=== PATIENT | female | born 1970 | race Caucasian/White ===

== ENCOUNTER 2025-02-07 16:55 | Emergency (ER) | payer OTHER ==
[2025-02-07 17:09] VITALS: TEMP 99.5; BMI 46.5
[2025-02-07 18:26] LABS: ABSOLUTE IMMATURE GRANULOCYTES 0.03 x10^3/uL (0.0-0.031); BASOPHILS # 0.02 x10^3/uL (0.01-0.08); EOSINOPHIL % 0.5 % (0.7-5.8); EOSINOPHILS # 0.05 x10^3/uL (0.04-0.36); HEMATOCRIT 42.2 % (34.1-44.9); HEMOGLOBIN 13.4 g/dL (11.2-15.7); MCHC 31.8 g/dl (32.2-35.5); MEAN CELL VOLUME 89.8 fl (79.4-94.8); MEAN PLT VOLUME 11.5 fl (9.4-12.3); MONOCYTE # 0.46 x10^3/uL (0.24-0.86); PLATELET COUNT 221 x10^3/uL (182-369); RDW 14.8 % (12.3-16.6)
[2025-02-07 18:34] LABS: INR 1.07 (0.83-1.09); PROTHROMBIN TIME (PATIENT) 11.8 SEC (9.7-13.0)
[2025-02-07 18:36] LABS: ACTIVATED PTT 30.7 SECONDS (25.2-36.5)
[2025-02-07 18:55] LABS: POTASSIUM 4.4 mmol/L (3.5-5.1)
[2025-02-07 18:58] LABS: ALBUMIN 3.2 g/dl (3.4-5.0); BLOOD UREA NITROGEN 13.9 mg/dL (7-18); CALCIUM 9.4 mg/dL (8.5-10.1)
[2025-02-07 19:01] LABS: CREATININE 0.6 mg/dL (0.55-1.3)
[2025-02-07 19:03] LABS: BILIRUBIN,TOTAL 0.6 mg/dL (0.2-1); TOT PROT 7.1 g/dl (6.4-8.2)
[2025-02-07 22:43] VITALS: BP 160/85; PULSE 77; RESP 18
== END 2025-02-07 22:43 | disposition home or self-care (01) ==
LOC: JER 16:55
DX: K62.5 Hemorrhage of anus and rectum (principal); R10.32 Left lower quadrant pain; K64.4 Residual hemorrhoidal skin tags
CPT/HCPCS: 36415; 74177-TC; 80053; 85025; 85610; 85730; 86850; 86900; 86901; 93005; 93010; 99285-25

== ENCOUNTER 2025-03-05 06:56 | Day surgery (SDC) | payer OTHER ==
[2025-03-04 10:16] VITALS: BMI 56.6
[2025-03-05 09:33] VITALS: TEMP 97.9
[2025-03-05 10:04] VITALS: RESP 14
[2025-03-05 10:06] VITALS: BP 160/74; PULSE 60
[2025-03-05 11:16] LABS: POTASSIUM 4.3 mmol/L (3.5-5.1)
[2025-03-05 11:18] LABS: ALBUMIN 3.3 g/dl (3.4-5.0); BLOOD UREA NITROGEN 17.1 mg/dL (7-18); CALCIUM 9.2 mg/dL (8.5-10.1)
[2025-03-05 11:21] LABS: BILIRUBIN,DIRECT 0.2 mg/dL (0.0-0.2); CREATININE 0.8 mg/dL (0.55-1.3)
[2025-03-05 11:23] LABS: BILIRUBIN,TOTAL 0.9 mg/dL (0.2-1); TOT PROT 6.6 g/dl (6.4-8.2)
[2025-03-06 17:08] LABS: MITOCHONDRIAL AB <20.0 Units (0.0-20.0)
[2025-03-08 03:10] LABS: ALPHA 2 MACROGLOBULINS,QN 122 mg/dL (110-276); ALT(SGPT)P5P 33 IU/L (0-40); APOLIPOPROTEIN A-1. 118 mg/dL (116-209); CHOLESTEROL TOTAL 125 mg/dL (100-199); GLUCOSE SERUM 95 mg/dL (70-99)
== END 2025-03-05 10:10 | disposition home or self-care (01) ==
LOC: JASU-ENDO 06:56
PROVIDERS: ATTEND Internal Medicine Gastroenterology
PROC: 0DJD8ZZ Inspection of Lower Intestinal Tract, Via Natural or Artificial Opening Endoscopic (ICD-10-PCS; principal; 2025-03-05 08:45)
DX: K64.8 Other hemorrhoids (principal); K57.30 Diverticulosis of large intestine without perforation or abscess without bleeding
CPT/HCPCS: 36415; 80048; 80076; 82962; 83516; 86038